=== PATIENT | female | born 1995 | race Caucasian/White ===

== ENCOUNTER → 2017-07-16 | Day surgery (SDC) | payer BC ==
[2017-07-12 15:46] LABS: BASOPHILS # (AUTO) 0.1 (0.0-0.1); BASOPHILS % 0.4 % (0.0-1.0); EOSINOPHILS # (AUTO) 0.3 (0.0-0.4); EOSINOPHILS % 1.4 % (0.0-6.0); HEMATOCRIT 43.9 % (34.2-44.1); HEMOGLOBIN 14.8 g/dL (12.0-16.0); LYMPHOCYTES # (AUTO) 3.2 (1.0-3.2); LYMPHOCYTES % 17.2 % (18.0-39.1); MEAN CORPUSCULAR HEMOGLOBIN 30.9 pg (28-32); MEAN CORPUSCULAR HGB CONC 33.7 g/dL (31-35); MEAN CORPUSCULAR VOLUME 91.6 fL (81-99); MONOCYTES # (AUTO) 1.8 (0.2-0.8); MONOCYTES % 9.4 % (4.4-11.3); NEUTROPHILS # (AUTO) 13.3 (2.1-6.9); NEUTROPHILS % 70.9 % (38.7-80.0); PLATELET COUNT 283 x10e3/uL (140-360); RED BLOOD COUNT 4.79 x10e6/uL (3.6-5.1); RED CELL DISTRIBUTION WIDTH 13.5 % (11.7-14.4)
[2017-07-12 17:30] LABS: LYMPHOCYTES % (MANUAL) 10 % (19-48); MONOCYTES % (MANUAL) 8 % (3.4-9.0); NEUTROPHILS % (MANUAL) 80 % (40-74); PLATELET ESTIMATE ADEQUATE; PLATELET MORPHOLOGY COMMENT NORMAL; RBC MORPHOLOGY COMMENT NORMAL
[~2017-07-16] MED LIST: BC IMPLANT IL; BENTYL PO; DEXILANT60 MG PO; DOXYCYCLINE HY100 MG PO; FENTANYL CITRATE/PF 100MCG/2 ML INJ ONE; HYOSCYAMINE SULFATE 0.5 MG/ML AMP ONE; KETOROLAC TROME10 MG IV; MECLIZINE HCL12.5 MG PO; MIDAZOLAM HCL 2 MG/2 ML VIAL ONE; MIDAZOLAM HCL 5MG/ML 2ML VIAL ONE; ONDANSETRON2 MG/1 ML IV; PANTOPRAZOLE 40 MG 10ML VIAL ONE; PROMETHAZINE PO; PROPOFOL IV EMULSION 10 MG/ML 50 ML VIAL ONE; Q-VAR INH; TYLENOL WITH C1 EACH PO
--- OUTSIDE RECORDS SUMMARY | 2017-07-16 12:35 | XMS REPORT | Clinical Summary ---
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 Disp. Refills Start End Date Status Date haloperidol (HALDOL) 1 MG TAKE ONE HALF TABLETS BY 0 10/18/19 Active tablet MOUTH TWICE EVERY DAY 17 TODAY ONLY THEN TAKE 1 TAB AT NIGHT ONLY hydroxychloroquine Take 200 mg by mouth 2 1 11/30/19 Active (PLAQUENIL) 200 mg tablet (two) times a day with 17 meals. mupirocin (BACTROBAN) 2 % APPLY A SMALL AMOUNT TO 0 12/05/19 Active ointment THE AFFECTED AREA BY [address] 3 TIMES PER DAY FOR 7 DAYS sertraline (ZOLOFT) 100 TAKE 2 TABLETS BY MOUTH 0 12/05/19 Active MG tablet EVERY MORNING WITH FOOD 17 sulfamethoxazole-trimetho TAKE 1 TABLET(S) EVERY 12 0 12/05/19 Active prim (BACTRIM DS) 800-160 HOURS BY ORAL ROUTE 17 mg per tablet DIRECTED FOR 10 DAYS. triamcinolone (KENALOG) APPLY TO AFFECTED AREA A 0 12/05/19 Active 0.1 % cream THIN LAYER TWICE A DAY 17 FOR 7 DAYS DEXLANSOPRAZOLE (DEXILANT Take by mouth daily. Active ORAL) ondansetron ODT Take 1 tablet (4 mg 9 tablet 0 07/16/19 07/19/19 Active (ZOFRAN-ODT) 4 MG total) by mouth every 8 18 18 disintegrating tablet (eight) hours as needed for nausea or vomiting for up to 3 days. acetaminophen-codeine Take 1-2 tablets by mouth 20 tablet 0 01/10/20 01/15/20 (TYLENOL WITH CODEINE #3) every 6 (six) hours as 17 17 300-30 mg per tablet needed for mild pain or moderate pain for up to 5 days. cyclobenzaprine Take 1 tablet (10 mg 20 tablet 0 01/10/20 01/20/20 (FLEXERIL) 10 mg tablet total) by mouth 3 (three) 17 17 times a day as needed for muscle spasms for up to 10 days. acetaminophen-codeine Take 1 tablet by mouth 10 tablet 0 02/07/20 (TYLENOL WITH CODEINE #3) every 6 (six) hours as 17 17 300-30 mg per tablet needed for moderate pain for up to 3 days. Active Problems Not on file Encounters Date Type Specialty Care Team Description 07/16/2017 Emergency Emergency Medicine Albert Mena MD Pain of upper abdomen (Primary Dx); Non-intractable vomiting with nausea, unspecified vomiting type 02/06/2017 Emergency Emergency Medicine Amos Oakley, Rib pain on right side (Primary Dx); Thoracic back pain, unspecified back pain laterality, unspecified chronicity; Radiculopathy of thoracic region; Closed fracture of one rib of right side, initial encounter 01/09/2017 Emergency Emergency Medicine Jun Gerber Upper back strainPatrick MD initial encounter (Primary Dx); Intercostal muscle strain, initial encounter after 07/15/2016 Social History Tobacco Use Types Packs/Day Years Used Date Former Smoker Cigarettes 1 Smokeless Tobacco: Never Used Tobacco Cessation: Ready to Quit: Yes; Counseling Given: Yes Alcohol Use Drinks/Week oz/Week Comments No OCTOBER 2016 Sex Assigned at Date Recorded Not on file Last Filed Vital Signs Vital Sign Reading Time Taken Blood Pressure 118/61 07/16/2017 2:00 AM LABEL PASTER Pulse 85 07/16/2017 2:00 AM LABEL PASTER Temperature 36.6 C (97.9 F) 07/16/2017 12:15 AM LABEL PASTER Respiratory Rate 16 07/16/2017 2:00 AM LABEL PASTER Oxygen Saturation 98% 07/16/2017 2:00 AM LABEL PASTER Inhaled Oxygen - - Concentration Weight 137 kg (303 lb) 07/16/2017 12:15 AM LABEL PASTER Height 177.8 cm (5' 10") 07/16/2017 12:15 AM LABEL PASTER Body Mass Index 43.48 07/16/2017 12:15 AM LABEL PASTER Plan of Treatment Health Maintenance Due Date Last Done Comments CHLAMYDIA SCREENING 2009 PAP SMEAR 2014 INFLUENZA VACCINE 12/26/2016 Results * Urinalysis screen and microscopy, with reflex to culture (07/16/2017 1:20 AM) Component Value Ref Range Specimen site Clean catch Color, UA Yellow Appearance, UA Cloudy Specific gravity, UA 1.021 1.001 - 1.035 pH, UA 5.0 5.0 - 8.5 Protein, UA Negative Negative Glucose, UA Negative Negative Ketones, UA 1+ (A) Negative Bilirubin, UA Negative Negative Blood, UA Negative Negative Nitrite, UA Negative Negative Urobilinogen, UA Negative <2.0 Leukocyte esterase, UA Negative Negative Epithelial cells, UA Many /HPF Round epithelial cells, Few 0 - 1 /HPF UA WBC, UA 0-5 0 - 4 /HPF RBC, UA 0-5 0 - 2 /HPF Bacteria, UA Trace None seen Yeast, UA None seen Yeast with pseudohyphae, None seen UA Hyaline casts, UA 3-5 /LPF Specimen Performing Laboratory Urine [facility] DEPARTMENT OF PATHOLOGY AND GENOMIC MEDICINE [id number] [place] [address] [place] [address] * Estimated GFR (07/16/2017 12:30 AM) Component Value Ref Range GFR Non Af Amer >90 mL/min/1.73 m2 GFR Af Amer >90 mL/min/1.73 m2 Comment: Chronic kidney disease: <60 mL/min/1.73m2 Kidney failure: <15 mL/min/1.73m2 The estimated GFR is calculated from the IDMS-traceable Modification of Diet in Renal Disease Equation. The accuracy of the calculation is poor when the creatinine is normal. Calculated values >90 mL/min/1.73m2 are not reported. This equation has not been validated in children (<18 years), women, the elderly (>70 years), or ethnic groups other than Caucasians and Americans. Specimen Performing Laboratory Plasma specimen [facility] DEPARTMENT OF PATHOLOGY AND GENOMIC MEDICINE [address] [place] [address] * CBC with platelet and differential (07/16/2017 12:30 AM) Component Value Ref Range WBC 19.10 (H) 4.50 - 11.00 k/uL RBC 4.70 4.20 - 5.50 m/uL HGB 14.7 12.0 - 16.0 g/dL HCT 43.7 37.0 - 47.0 % MCV 93.0 82.0 - 100.0 fL MCH 31.3 27.0 - 34.0 pg MCHC 33.6 31.0 - 37.0 g/dL RDW - SD 45.5 37.0 - 55.0 fL MPV 11.0 8.8 - 13.2 fL Platelet count 272 150 - 400 k/uL Nucleated RBC 0.00 /100 WBC Neutrophils 80.3 (H) 39.0 - 69.0 % Lymphocytes 10.0 (L) 25.0 - 45.0 % Monocytes 7.6 0.0 - 10.0 % Eosinophils 1.1 0.0 - 5.0 % Basophils 0.3 0.0 - 1.0 % Immature granulocytes 0.7Comment: "Immature granulocytes" 0.0 - 1.0 % (promyelocytes, myelocytes, metamyelocytes) Specimen Performing Laboratory Blood [facility] DEPARTMENT OF PATHOLOGY AND GENOMIC MEDICINE [address] [place] [address] * hCG qualitative, serum screen (07/16/2017 12:30 AM) Component Value Ref Range hCG qualitative, serum NegativeComment: lot [id number] exp 10/2018 Specimen Performing Laboratory Blood [facility] DEPARTMENT OF PATHOLOGY AND [facility] [address] [place] [address] * Lipase level (07/16/2017 12:30 AM) Component Value Ref Range Lipase 91 (H) 13 - 60 U/L Specimen Performing Laboratory Plasma specimen [facility] DEPARTMENT PATHOLOGY AND [facility] [address] [place] [address] * Hepatic function panel (07/16/2017 12:30 AM) Component Value Ref Range Albumin 4.1 3.5 - 5.0 g/dL Total bilirubin 0.4 0.0 - 1.2 mg/dL Bilirubin direct 0.1 0.0 - 0.3 mg/dL Alkaline phosphatase 56 35 - 104 U/L Protein 7.3 6.3 - 8.3 g/dL Comment: [place] 4.6-7.0 g/dL 1 week 4.4-7.6 g/dL 7 months-1year 5.1-7.3 g/dL 1-2 years 5.6-7.5 g/dL >3 years 6.0-8.0 g/dL 18-150 6.3-8.3 g/dL ALT 26 5 - 50 U/L AST 16 10 - 35 U/L Specimen Performing Laboratory Plasma specimen [facility] PATHOLOGY AND [facility] [address] [place] [address] [place] [address] * Basic metabolic panel (07/16/2017 12:30 AM) Component Value Ref Range Sodium 138 135 - 148 mEq/L Potassium 4.0 3.5 - 5.0 mEq/L Chloride 99 98 - 112 mEq/L CO2 23 (L) 24 - 31 mEq/L Anion gap 16 (H) 7 - 15 mEq/L Comment: Starting from August , anion gap calculation no longer incorporates potassium. Please note the change. BUN 8 6 - 20 mg/dL Creatinine 0.7 0.5 - 0.9 mg/dL Glucose 119 (H) 65 - 99 mg/dL Calcium 9.6 8.3 - 10.2 mg/dL Specimen Performing Laboratory Plasma specimen [facility] PATHOLOGY AND [facility] [id number] [place] [address] [place] [address] * XR Thoracic Spine 3 Vw (02/06/2017 8:41 AM) Specimen Performing Laboratory [address] [address] Narrative EXAMINATION: XR THORACIC SPINE 3 VW CLINICAL HISTORY: pain COMPARISON:None IMPRESSION: No fracture or subluxation. No significant degenerative change. [id number] Procedure Note Interface, Radiology Results Incoming - 02/06/2017 8:47 AM CDT EXAMINATION: XR THORACIC SPINE 3 VW CLINICAL HISTORY: pain COMPARISON: None IMPRESSION: No fracture or subluxation. No significant degenerative change. [id number] * XR Ribs W Pa Chest Right (02/06/2017 8:40 AM) Specimen Performing Laboratory [facility] [id number] [place] [address] Narrative EXAMINATION: XR RIBSW PA CHEST RIGHT INDICATION: RIB FXS 63 YEARS, right sided rib pain COMPARISON: 01/09/2017 IMPRESSION: Subacute to chronic fracture of the right lateral ninth rib with callus formation. No definite visible acute fracture. Hypoinflation of the lungs with bibasilar atelectasis. Calcified granuloma right upper lobe. [id number] Procedure Note Interface, Radiology Results Incoming - 02/06/2017 8:48 AM CDT EXAMINATION: XR RIBS W PA CHEST RIGHT INDICATION: RIB FXS 63 YEARS, right sided rib pain COMPARISON: 01/09/2017 IMPRESSION: Subacute to chronic fracture of the right lateral ninth rib with callus formation. No definite visible acute fracture. Hypoinflation of the lungs with bibasilar atelectasis. Calcified granuloma right upper lobe. [id number] * XR Chest 2 Vw (01/09/2017 1:58 AM) Specimen Performing [facility] [address] [place] [address] Narrative EXAMINATION: XR CHEST 2 VW CLINICAL HISTORY: Chest Pain, r o R ptx COMPARISON:None. IMPRESSION: Subcentimeter calcified granuloma at the right lung apex. The lungs are otherwise clear. No pleural effusion or pneumothorax. The cardiomediastinal silhouette is normal. No acute osseous abnormalities. [id number] Procedure Note Interface, Radiology Results Incoming - 01/09/2017 2:05 AM CDT EXAMINATION: XR CHEST 2 VW CLINICAL HISTORY: Chest Pain, r o R ptx COMPARISON: None. IMPRESSION: Subcentimeter calcified granuloma at the right lung apex. The lungs are otherwise clear. No pleural effusion or pneumothorax. The cardiomediastinal silhouette is normal. No acute osseous abnormalities. [facility]-[id number] after 07/15/2016 Insurance Payer Benefit Subscriber ID Type Phone Address Plan / Group BCBS BCBS OUT xxxxxxxxxxxx [place] [address]
[2017-07-16 17:17] LABS: WBC,FECAL (FECAL LACTOFERRIN) NEGATIVE (NEGATIVE)
[2017-07-16 20:26] LABS: C DIFFICILE TOXIN A&B AMP PROB **POSITIVE** (NEGATIVE)
--- NOTE | 2017-07-17 09:03 | Operative Report ---
DATE OF PROCEDURE: July 16, 2017 REFERRING PHYSICIAN: Dr. Bc Torres. PROCEDURE PERFORMED: 1. Esophagogastroduodenoscopy with biopsies. 2. Colonoscopy with polypectomy and biopsies. INDICATIONS FOR ESOPHAGOGASTRODUODENOSCOPY: Acid reflux. INDICATIONS FOR COLONOSCOPY: Chronic diarrhea. MEDICATION: Patient was done under MAC. Please see anesthesiologist's note. PROCEDURE: With patient in the left lateral decubitus position, the flexible fiberoptic Olympus gastroscope was introduced into the esophagus under direct visualization without any difficulty. There was some patchy erythema noted in the distal esophagus. The scope was then advanced with ease into the stomach. Mucosa overlying the antrum and the body revealed some patchy erythema and mild to moderate edema, and biopsies were obtained and sent to stain for H. pylori. Pylorus appeared to be of normal contour and shape, was intubated with ease, and the scope was advanced all the way to the 2nd portion of the duodenum. Biopsies were obtained from the 2nd portion to rule out sprue, considering patient's history of diarrhea. The scope was then withdrawn back into the stomach and retroflexed, and the mucosa overlying the fundus and the cardia appeared to be within normal limits. The scope was then straightened out. It was subsequently withdrawn. Patient tolerated procedure well. IMPRESSION: 1. Distal esophagitis. 2. Gastritis biopsied. Biopsies sent to stain for H. pylori. 3. Rule out sprue. PLAN: Follow up histology. Continue Dexilant 60 mg 1 p.o. q.a.m. a.c. Add Reglan 10 mg 1 p.o. a.c. t.i.d. and nightly. Patient was then turned around and after adequate lubrication of the anal canal, a flexible fiberoptic Olympus colonoscope was inserted into the rectum with ease and advanced all the way to the cecum. The mucosa overlying the cecum appeared to be within normal limits. The ileocecal valve was intubated, and the scope was advanced into the terminal ileum. Biopsies were obtained. The scope was then withdrawn back into the colon. It was then withdrawn slowly. Mucosa overlying the ascending, transverse, descending and sigmoid revealed patchy mild inflammatory changes, and multiple random biopsies were obtained. Two polyps were hot biopsied from the sigmoid colon. The scope was then retroflexed into the distal rectum, and the area around the dentate line appeared to be within normal limits. The scope was then straightened out. It was subsequently withdrawn after securing an adequate stool specimen that was sent for the appropriate stool studies. Patient tolerated the procedure well. IMPRESSION: 1. Colitis, patchy, random biopsies obtained. 2. Sigmoid colon polyps hot biopsied times 2. PLAN: Follow up histology. Initiate Bentyl 10 mg 1 p.o. t.i.d. Start VSL#3 one p.o. b.i.d. Timing of followup colonoscopy pending pathology report. Job#: [id number] EV cc:BC TORRES M.D.
== END | disposition home or self-care (01) ==
LOC: OR 12:32
PROVIDERS: ATTEND Internal Medicine Gastroenterology
DX: K21.9 Gastro-esophageal reflux disease without esophagitis (principal); K63.5 Polyp of colon; K29.70 Gastritis, unspecified, without bleeding; K20.9 Esophagitis, unspecified; K52.9 Noninfective gastroenteritis and colitis, unspecified; I10 Essential (primary) hypertension; R73.09 Other abnormal glucose; J45.909 Unspecified asthma, uncomplicated; F32.9 Major depressive disorder, single episode, unspecified; F43.10 Post-traumatic stress disorder, unspecified; F41.9 Anxiety disorder, unspecified; F17.200 Nicotine dependence, unspecified, uncomplicated; Z01.812 Encounter for preprocedural laboratory examination; Z68.42 Body mass index [BMI] 45.0-49.9, adult
CPT/HCPCS: 36415; 43239; 45380; 45384; 81025; 83630; 83993; 85025; 87045; 87177; 87328; 87493; J1980; J2250 ×2